=== PATIENT | female | born 1975 | race Caucasian/White ===

== ENCOUNTER 2018-05-31 14:25 | Emergency (ER) | payer BC ==
[2018-05-31 14:51] VITALS: BP 143/71
[2018-05-31] MEDS ORDERED: Ibuprofen TAB* 600 MG PO ONE (15:35)
--- NOTE | 2018-05-31 15:46 | UC ---
Complaint Female HPI - HPI Summary HPI Summary: Pt with 3 days of increased reddness and tenderness left labial area. Pt states has had it "drained" before. pt states this morning notices some "pink drainage " no odor. States has taken APAP for discomfort. No fever, chills. Painful with palpation. Pt does have DM- no insulin. Pt has been seen by general surgery for same > 2 years ago. No n/v. No vaginal discharge Pt's medications reviewed this visit - History Of Current Complaint Chief Complaint: UCSkin Stated Complaint: PERSONAL SKIN COMPLAINT Time Seen by Provider: 05/31/18 15:18 Hx Obtained From: Patient Hx Last Menstrual Period: unknown Pain Intensity: 6 - Allergies/Home Medications Allergies/Adverse Reactions: Allergies Allergy/AdvReac Type Severity Reaction Status Date / Time Adhesive Tape Allergy Rash Verified 01/15/16 19:47 morphine Allergy Swelling Verified 05/31/18 14:44 Home Medications: Home Medications Ibuprofen TAB* [Advil TAB*] 400 mg PO Q6H PRN 05/31/18 [History Confirmed ] PMH/Surg Hx/FS Hx/Imm Hx Endocrine History: Diabetes - Surgical History Surgical History: Yes Surgery Procedure, Year, and Place: Major surgery for abd abcess and removal of ovary. I&D LEG ABSCESS. T&A - Family History Known Family History: Positive: Diabetes - Social History Occupation: Employed Full-time Lives: With Family Alcohol Use: Rare Substance Use Type: None Smoking Status (MU): Heavy Every Day Tobacco Smoker Type: Cigarettes Amount Used/How Often: 1 PPD Length of Time of Smoking/Using Tobacco: 25 YRS Review of Systems All Other Systems Reviewed And Are Negative: Yes Constitutional: Positive: Negative Skin: Positive: Other - left labial area Genitourinary: Positive: Vaginal/Penile Pain. Negative: Dysuria, Vaginal/ Penile Burning, Vaginal/Penile Discharge, Vaginal/Penile Tenderness Physical Exam - Summary Physical Exam Summary: Vital Signs Reviewed: Yes A+Ox3, no distress Eyes: Conjunctiva Clear, PATRICIA. EOM intact and full ENT: Hearing grossly normal TM x 2 clear, mmoist, uvula midline, no exudate, no erythema Neck: Positive: Supple Respiratory: Positive: No respiratory distress, No accessory muscle use + CTA throughout no w/r Cardiovascular: RRR nl s1, s2 no m/r CBT <2 sec abd soft + BS nt/nd no guarding, no distension electric cell tender: evaluated in lithotomy position pt with mild fullness and erythema left labial area. no fluctuance mild induration pt with scant sero-sanguineous drainage. milked along labia - no increase in drainage, no odor, no purulent drainage. Musculoskeletal Exam: DE LEÓN x 4 without difficulty Strength Intact, ROM Intact Neurological: Positive: Alert, + sensation throughout Psychological: Positive: Normal Response To Family Skin: Positive: no rash, no ecchymosis Triage Information Reviewed: Yes Vital Signs: Initial Vital Signs Temp 99.4 F 05/31/18 14:45 Pulse 81 05/31/18 14:45 Resp 16 05/31/18 14:45 BP 143/71 05/31/18 14:45 Pulse Ox 100 05/31/18 14:45 Complaint Female Dx - Course Course Of Treatment: Pt with inflammation and erythema left labia. pt with scant, thin pink tinged discharge. no fluctuance. mild TTP. recommend abx. sitz bath. VERY strict return recautions discussed with pt -=r ecomend f/u with [facility] or ED for increased pain, odor, fever, vomiting or other concerns - Differential Dx/Diagnosis Provider Diagnosis: Cellulitis Discharge - Sign-Out/Discharge Documenting (check all that apply): Patient Departure All imaging exams completed and their final reports reviewed: No Studies - Discharge Plan Condition: Stable Disposition: HOME Prescriptions: Amoxicillin/Clavulanate TAB* [Augmentin TAB 875*] 875 mg PO BID #20 tab Clindamycin Cap(NF) [Clindamycin Cap 300 mg Cap(NF)] 300 mg PO TID #30 cap Patient Education Materials: Cellulitis (ED) Referrals: Ange Arechiga MD [Primary Care Provider] - Additional Instructions: - take BOTH antibiotics EXACTLY as prescribed until gone - these antibioitcs will likely cause diarrhea - it is recommended you eat yogurt and / or take probiotics daily while on these medications - use warm water sitz baths with epsom salts for 20 minutes - 2-3 time a day - Okay to alternate ibuoprofen (Advil, Motrin) and tylenol every 3 hours for pain If you develop increased pain, fevers, chills, increased pain, change in drainage or ANY other concerns it is recommended you go IMMEDIATELY to the emergency department for further evaluation and treatment. If you have ANY concerns, go to the emergency department for evaluation - Billing Disposition and Condition Condition: STABLE Disposition: Home
== END 2018-05-31 16:42 | disposition home or self-care (01) ==
LOC: UCCORT 14:25
DX: N76.2 Acute vulvitis (principal); Z88.5 Allergy status to narcotic agent; Z91.048 Other nonmedicinal substance allergy status; F17.210 Nicotine dependence, cigarettes, uncomplicated
CPT/HCPCS: 99212; A9270-GY; G0463